=== PATIENT | female | born 1965 | race American Indian/Alaskan Native ===

== ENCOUNTER 2022-12-18 11:48 | Day surgery (SDC) | payer BC, OTHER ==
[~2022-12-18] VITALS: Ht 154.9 cm; Wt 62.0 kg
[~2022-12-18 11:48] MED LIST: ALLERGY RELIEF25 MG PO; GLIPIZIDE10 MG PO; INVOKANA300 MG PO; LISINOPRIL5 MG PO; METFORMIN HCL500 MG PO; OZEMPIC1 MG/0.71 SQ; ROSUVASTATIN CA10 MG PO
[2022-12-18 12:08] VITALS: BP 106/53
--- NOTE | 2022-12-18 14:34 | NUR ---
12/18/22 1434 Hanna Muller 1431-PATIENT ARRIVED TO PACU ON RA 93% RR EVEN. PATIENT LAYING LEFT LATERAL ABDOMEN SOFT IVF INFUSING. PATIENT REACTIVE TO VERBAL STIMULI DENIES PAIN OR NAUSEA AND DOZES BACK TO SLEEP.
[2022-12-18 15:08] VITALS: BP 106/85
--- NOTE | 2022-12-18 19:46 | OR ---
[facility] [address] [place], [place] [address] Signed DATE OF OPERATION: 12/18/2022 SURGEON: Felisha Johnson MD PREOPERATIVE DIAGNOSIS: Colon screening. POSTOPERATIVE DIAGNOSIS: Normal colon to cecum. PROCEDURE: Total colonoscopy. ANESTHESIA: Intravenous sedation; fentanyl 100 mcg and Versed 5 mg. INDICATION: This 57-year-old [place] woman is a patient of Dr. Holly at [facility] and is referred for colon screening. She has never had colonoscopy in the past. She has no symptoms of bleeding, diarrhea, or constipation and has no family history of colon cancer. She understands the risk of bleeding, infection, and perforation related to colonoscopy and wished to proceed. FINDINGS: The prep was good. Complete colonoscopy was undertaken to the cecum without question. She had no sign of polyps, diverticular formation, colitis, or cancer. DESCRIPTION OF PROCEDURE: The patient was brought to the endoscopy suite and placed in the lateral decubitus position, given intravenous sedation to the point of slurred speech and nystagmus. Digital rectal examination was normal. An Olympus video colonoscope was passed in the rectum and manipulated throughout the colon ultimately intubating the cecum itself. The ileocecal valve and appendiceal orifice were normal. Scope was withdrawn and examination throughout showed no sign of polyps, diverticular formation, colitis, or cancer. Retroflexed view was normal as well. The scope was removed and the patient was taken to the recovery room in good condition. CONCLUDING DIAGNOSIS: Electronically Signed By: FELISHA JOHNSON MD 12/18/221945 PATIENT NAME: BETTE VAUGHAN OPERATIVE REPORT DATE OF : 63 REPORT #: [id number] PHYSICIAN: FELISHA JOHNSON MD PCP: ADITYA HOLLY MD REPORT IS CONFIDENTIAL AND NOT TO BE RELEASED WITHOUT AUTHORIZATION [address] [place], [place] [address] Signed Normal colon to cecum. PLAN: Recommend repeat colonoscopy in 10 years, sooner if clinically indicated. She will return to the ongoing care of Dr. Holly at [facility]. Felisha Johnson MD /MODL /[id number] cc: Aditya Holly MD Copies: ADITYA HOLLY MD ~ Electronically Signed By: FELISHA JOHNSON MD 12/18/22 1946 PATIENT NAME: BETTE VAUGHAN OPERATIVE REPORT DATE OF : 63 REPORT #: [id number] PHYSICIAN: FELISHA JOHNSON MD PCP: ADITYA HOLLY MD REPORT IS CONFIDENTIAL AND NOT TO BE RELEASED WITHOUT AUTHORIZATION
== END 2022-12-18 15:20 | disposition home or self-care (01) ==
LOC: DS 11:48 → OPS 11:48 → DS 13:00 → OPS 13:30
PROVIDERS: ATTEND Surgery
PROC: 0DJD8ZZ Inspection of Lower Intestinal Tract, Via Natural or Artificial Opening Endoscopic (ICD-10-PCS; principal; 2022-12-18 13:30)
DX: Z12.11 Encounter for screening for malignant neoplasm of colon (principal)
CPT/HCPCS: 99153; G0500; J2250; J3010; J7121